=== PATIENT | female | born 1985 | race Caucasian/White ===

== ENCOUNTER → 2020-12-09 | Outpatient (CLI) | payer OTHER ==
[~2020-12-09] MED LIST: IBU600 MG PO; PERCOCET 325 MG1 TA2 PO; PNV-DHA1 SGL PO
== END ==
LOC: DIA.ED 08:02
DX: O24.419 Gestational diabetes mellitus in pregnancy, unspecified control (principal)
CPT/HCPCS: G0108

== ENCOUNTER → 2020-12-16 | Outpatient (CLI) | payer OTHER | LOC: DIA.ED 07:58 | DX: O24.419 Gestational diabetes mellitus in pregnancy, unspecified control (principal) | CPT/HCPCS: G0108 ==

== ENCOUNTER 2021-02-03 10:00 | Inpatient (IN) | payer OTHER ==
[~2021-02-03] VITALS: Ht 162.7 cm; Wt 82.7 kg
[2021-02-03] VITALS (17 sets, daily range): BP systolic 88–140; BP diastolic 36–89; PULSE 79–100; TEMP 97.5–98.7
--- NOTE | 2021-02-03 10:05 | NUR ---
Presents to [facility] for scheduled repeat ceserean section. Accompanied by spouse, Joel. Ambulatory to unit. Reports much anxiety about this procedure.
[2021-02-03 10:59] LABS: BASO % 0.3 % (0.0-2.0); EOS # 0.1 (0.0-0.7); EOS % 0.6 % (0-4.0); GRAN # 7.6 (1.4-6.5); GRAN % 75.7 % (42.2-75.2); HEMATOCRIT 35.7 % (37.0-47.0); HEMOGLOBIN 12.4 g/dl (12.5-16.0); LYMPH # 1.7 (1.2-3.4); LYMPH % 16.8 % (20.0-51.0); MEAN CELL VOLUME 90 fl (80.0-100.0); MEAN CORPUSCULAR HEMOGLOBIN 31 pg (27.0-31.0); MEAN CORPUSCULAR HGB CONC 35 g/dl (33.0-37.0); MEAN PLATELET VOLUME 10.4 fl (7.4-10.4); MONO # 0.6 (0.1-0.6); MONO % 5.9 % (1.7-9.3); PLATELET COUNT 174 K/mm3 (130-400); RED BLOOD COUNT 3.96 M/mm3 (4.10-5.30); REDCELL DISTRIBUTION WIDTH-CV 14.1 % (11.5-14.5)
[2021-02-03 11:06] LABS: COLLECTION METHOD CLEAN CATCH
[2021-02-03 11:08] LABS: ALBUMIN 3.7 gm/dL (3.5-5.0); BILIRUBIN,TOTAL 0.3 mg/dL (0.0-1.0); CALCIUM 9.3 mg/dL (8.4-10.2); CREATININE, serum 0.69 (0.52-1.25); POTASSIUM 3.7 mmol/L (3.4-5.0); TOTAL PROTEIN 6.9 gm/dL (6.4-8.2)
[2021-02-03 11:19] LABS: PH 7 (5-8); URINE APPEARANCE Clear; URINE BACTERIA Rare /hpf; URINE BILIRUBIN Negative (NEGATIVE); URINE BLOOD 1+ (NEGATIVE); URINE COLOR Yellow; URINE GLUCOSE Negative (NEGATIVE); URINE KETONE Negative (NEGATIVE); URINE LEUKOCYTE ESTERASE 1+ (NEGATIVE); URINE NITRATE Negative (NEGATIVE); URINE PROTEIN(semi-quant) Negative (NEGATIVE); URINE UROBILINOGEN Negative (NEGATIVE)
--- NOTE | 2021-02-03 11:41 | NUR ---
Mejia, TECHNICAL PUBLICATIONS WRITER, here.
[2021-02-03] MEDS ORDERED: PNV-DHA1 SGL PO (14:21)
--- NOTE | 2021-02-03 17:20 | NUR ---
JANES SIZE CLOT NOTED WITH 1645 CHECK. NO ACTIVE BLEEDING WHEN FUNDAL RUB WAS PERFORMED
[2021-02-04 07:25] VITALS: BP 108/70; PULSE 85; TEMP 98.3
[2021-02-04 08:59] LABS: HEMOGLOBIN 11.6 g/dl (12.5-16.0)
[2021-02-04 09:02] LABS: HEMATOCRIT 35.1 % (37.0-47.0)
--- NOTE | 2021-02-04 09:26 | NUR ---
Initial visit; Parents thanked Campaign Marketing Manager for offering congratulations and God's blessings for the of their daughter. Campaign Marketing Manager thanked family for choosing our hospital.
[2021-02-04 13:00] VITALS: BP 127/86; PULSE 86; TEMP 97.7
[2021-02-04 16:04] VITALS: BP 126/76; PULSE 79; TEMP 97.8
[2021-02-04 21:10] VITALS: BP 116/78; PULSE 72; TEMP 98
[2021-02-05 07:28] VITALS: BP 124/68; PULSE 72; TEMP 98.2
[2021-02-05] MEDS ORDERED: IBU600 MG PO (08:24)
[2021-02-05] MEDS ORDERED: PERCOCET 325 MG1 TA2 PO (08:24)
== END 2021-02-05 11:10 | disposition home or self-care (01) | DRG 788 ==
LOC: OB 10:00
PROVIDERS: ADMIT Obstetrics & Gynecology
PROC: 10D00Z1 Extraction of Products of Conception, Low, Open Approach (ICD-10-PCS; principal; 2021-02-03)
DX: O34.211 Maternal care for low transverse scar from previous cesarean delivery (principal); O24.420 Gestational diabetes mellitus in childbirth, diet controlled; Z3A.38 38 weeks gestation of pregnancy; Z37.0 Single live birth; O99.62 Diseases of the digestive system complicating childbirth; O13.4 Gestational [pregnancy-induced] hypertension without significant proteinuria, complicating childbirth; O26.893 Other specified pregnancy related conditions, third trimester; Z67.41 Type O blood, Rh negative
CPT/HCPCS: J0171; J1580; J1885; J2175; J2370; J2405; J2590; J2791; J7120

== ENCOUNTER 2023-05-26 05:32 | Inpatient (IN) | payer OTHER ==
[2023-05-26] VITALS (18 sets, daily range): BP systolic 96–128; BP diastolic 49–113; PULSE 79–101; TEMP 98–98.4
[~2023-05-26] VITALS: Ht 162.7 cm; Wt 81.4 kg
--- NOTE | 2023-05-26 05:50 | NUR ---
0550 ADM TO 213 FOR REPEAT C/SECT. ORIENTED TO ROOM AND EFM ON.
[2023-05-26] MEDS ORDERED: SYNTHROID0.05 MG/TA PO (06:57)
[2023-05-26] MEDS ORDERED: GLUCOPHAGE1000 MG PO (06:57)
[2023-05-26] MEDS ORDERED: VITAMIN D3400 I1 PO (06:59)
[2023-05-26 07:08] LABS: BASO % 0.3 % (0.0-2.0); EOS # 0.1 K/mm3 (0.0-0.7); GRAN # 6.8 K/mm3 (1.4-6.5); GRAN % 68.9 % (42.2-75.2); HEMATOCRIT 36.1 % (37.0-47.0); LYMPH # 2.2 K/mm3 (1.2-3.4); LYMPH % 21.8 % (20.0-51.0); MEAN CELL VOLUME 87 fl (80.0-100.0); MEAN CORPUSCULAR HEMOGLOBIN 29 pg (27-31); MEAN CORPUSCULAR HGB CONC 33 g/dl (33.0-37.0); MEAN PLATELET VOLUME 10.8 fl (7.4-10.4); MONO # 0.7 K/mm3 (0.1-0.6); MONO % 7.3 % (1.7-9.3); PLATELET COUNT 178 K/mm3 (130-400); RED BLOOD COUNT 4.16 M/mm3 (4.10-5.30); REDCELL DISTRIBUTION WIDTH-CV 13.5 % (11.5-14.5)
[2023-05-26 07:30] LABS: ALBUMIN 2.6 gm/dL (3.5-5.0); BILIRUBIN,TOTAL 0.2 mg/dL (0.2-1.2); CALCIUM 9.2 mg/dL (8.4-10.2); CREATININE, serum 0.69 mg/dL (0.57-1.11); POTASSIUM 3.7 mmol/L (3.5-4.5); TOTAL PROTEIN 5.8 gm/dL (6.2-8.1)
[2023-05-26] MEDS ORDERED: PERCOCET 325 MG1 TA2 PO (08:38)
[2023-05-26] MEDS ORDERED: IBU600 MG PO (08:38)
--- NOTE | 2023-05-26 17:50 | NUR ---
PATIENT REQUESTING TO AMBULATE AT THIS TIME. THIS RN ASSISTS PATIENT TO SIDE OF THE BED, PATIENT DOES NOT REPORT DIZZINESS. PATIENT ASSISTED TO STAND WITH ASISTANCE, PATIENT DOES NOT REPORT DIZZINESS. PATIENT AMBULATES WITH THIS RN TO THE RESTROOM. CATHETER DISCONTINUED AND PERICARE PROVIDED. PATIENT ASSISTED INTO A CLEAN GOWN AND UNDERWEAR AND ASSISTED BACK TO STANDING AT THE SIDE OF THE BED.
[2023-05-27 00:08] VITALS: BP 115/60; PULSE 88; TEMP 98.5
[2023-05-27 06:02] LABS: HEMATOCRIT 29.5 % (37.0-47.0); HEMOGLOBIN 9.8 g/dl (12.5-16.0)
[2023-05-27 07:45] VITALS: BP 108/70; PULSE 87; TEMP 98
--- NOTE | 2023-05-27 12:18 | NUR ---
Data: Line Painting Machine Operator visit attempted. Assessment: Family present - Father, Grandparents, two sisters. Mother was reading to younger of the daughters. Grandmother was holding baby boy. Family declined Line Painting Machine Operator visit. Plan of Care: No Line Painting Machine Operator services offered at this time. Educated Family that Chaplains are available if desired. Family thanked Line Painting Machine Operator.
[2023-05-27 16:02] VITALS: BP 130/75; PULSE 73; TEMP 98
[2023-05-27 19:01] VITALS: BP 116/68; PULSE 88; TEMP 98
[2023-05-28 07:15] VITALS: BP 115/68; PULSE 76
== END 2023-05-28 11:50 | disposition home or self-care (01) | DRG 788 ==
LOC: OB 05:32
PROVIDERS: ADMIT Obstetrics & Gynecology
PROC: 10D00Z1 Extraction of Products of Conception, Low, Open Approach (ICD-10-PCS; principal; 2023-05-26)
DX: O34.211 Maternal care for low transverse scar from previous cesarean delivery (principal); Z3A.38 38 weeks gestation of pregnancy; Z37.0 Single live birth; O24.425 Gestational diabetes mellitus in childbirth, controlled by oral hypoglycemic drugs; O99.284 Endocrine, nutritional and metabolic diseases complicating childbirth; E03.9 Hypothyroidism, unspecified; Z88.8 Allergy status to other drugs, medicaments and biological substances
CPT/HCPCS: J0665; J0737; J1100; J1580; J1885; J2405; J2590; J2791; J3010; J7120